=== PATIENT | female | born 1975 ===

== ENCOUNTER 2025-03-24 21:11 | Emergency (ER) | payer MEDICAID, SELFPAY ==
[2025-03-24 21:15] VITALS: BP 156/78; PULSE 100; RESP 18; TEMP 36.9; O2SAT 98; BMI 30.4
[2025-03-24 21:42] LABS: MANUAL DIFF FLAG NO
[2025-03-24 21:59] LABS: Alanine Aminotransferase 21 U/L (0-31); Albumin Level 4.6 g/dL (3.5-5.0); Alkaline Phosphatase 67 U/L (39-117); Anion Gap 10 (12-20); Aspartate Amino Transferase 28 U/L (5-31); Bilirubin Total 0.5 mg/dL (0.0-1.0); Blood Urea Nitrogen 21 mg/dL (9-16); Calcium 9.1 mg/dL (8.4-10.2); Carbon Dioxide 27 mmol/L (22-29); Chloride 105 mmol/L (96-108); Creatinine Clr Calc Pharmacy 60.1; Estimated Glomerular Filt Rate > 60; Glucose Random 97 mg/dL (60-115); Potassium 3.8 mmol/L (3.3-5.1); Sodium 138 mmol/L (135-145); Total Protein 7.6 g/dL (6.5-8.0)
[2025-03-24 22:00] LABS: Basophils Absolute Auto 0.1 X10*3/uL (0.0-0.2); Basophils Percent Auto 0.5 % (0-2); Eosinophils Absolute Auto 0.6 X10*3/uL (0.0-0.4); Eosinophils Percent Auto 5.5 % (0-4); Hematocrit 36.3 % (37.0-47.0); Imm Gran Abs Auto 0.02 X10*3/uL (0.00-0.03); Imm Gran Pct Auto 0.2 % (0.0-0.4); Lymphocytes Absolute Auto 2.1 X10*3/uL (1.2-4.9); Lymphocytes Percent Auto 19.6 % (20-40); Mean Corpuscular HGB Conc 33.1 g/dl (31.0-35.0); Mean Corpuscular Volume 84.6 fL (80.0-98.0); Mean Platelet Volume 9.9 fL (9.4-12.3); Monocytes Absolute Auto 1.1 X10*3/uL (0.1-1.2); Monocytes Percent Auto 10.4 % (2-11); Neutrophils Absolute Auto 6.8 x10*3/uL (2.0-8.3); Neutrophils Percent Auto 63.8 % (45-73); Platelet Count 344 X10*3/uL (160-400); Red Blood Count 4.29 X10*6/uL (4.20-5.50); Red Cell Distribution Width 14.6 % (11.0-16.0); White Blood Count 10.7 X10*3/uL (4.8-10.8)
[2025-03-24 22:05] VITALS: PULSE 90; RESP 16
--- NOTE | 2025-03-24 22:54 | PC.NURSE ---
pt awaiting provider eval- pt offers no complaints at this time
--- NOTE | 2025-03-24 23:49 | PC.NURSE ---
Took over care from MARY CARMEN Rice, pt upset she has not seen, notified providers, pt leaving due to her having to work.
--- OUTSIDE RECORDS SUMMARY | 2025-03-24 23:51 | XMS_ITS | Encounter Summary ---
Author Organization [facility] Address [address] [place] [address] Care Team Providers Care Metal Roaster Name Role Phone Delmy Vargas NP Primary Care Provider [phone] Encounter Details Date Type Department Care Team (Late st Contact Info) Description 02/24/2024 Scanned Document [facility] [address] [place] [address] David Saunders, DO [address] [place] [address] Social History Tobacco Use Types Packs/Day Years Used Date Smoking Tobacco: Every Day Cigarettes Smokeless Tobacco: Never Comments No Sex and Gender Information Value Date Recorded Sex Assigned at Female 11/18/2022 9:04 PM EST Legal Sex Female 11:05 AM EDT Gender Identity Female 11/18/2022 9:04 PM EST Sexual Orientation Heterosexual (straight) 11/18 9:04 PM EST documented as of this encounter Plan of Treatment Not on file documented as of this encounter Visit Diagnoses Not on filedocumented in this encounter Care Teams Metal Roaster Relationship Specialty Start Date End Date Delmy Vargas NP [address] [place] [address] PCP - General Family Medicine 07/06/22 documented as of this encounter
== END 2025-03-25 00:37 | disposition left against medical advice (07) ==
PROVIDERS: Emergency Provider Emergency Medicine
DX: M79.10 Myalgia, unspecified site (principal)
CPT/HCPCS: 36415; 80053; 85025; 99281; 99283; 99284